=== PATIENT | female | born 1945 | race Caucasian/White ===

== ENCOUNTER 2017-12-05 14:59 | Outpatient (CLI) | payer MEDICARE, BC | END 2017-12-05 15:00 | disposition home or self-care (01) | LOC: BICMAMMO 14:59 | PROVIDERS: ATTEND Specialist | DX: Z08 Encounter for follow-up examination after completed treatment for malignant neoplasm (principal); Z85.3 Personal history of malignant neoplasm of breast | CPT/HCPCS: 77066; G0279 ==

== ENCOUNTER 2018-01-14 07:21 | Inpatient (IN) | payer MEDICARE, BC ==
[2018-01-14 07:57] LABS: Bilirubin Negative (Negative); Blood, Urine Small (Negative); Clarity CLEAR (Clear); Glucose, Urine (Dipstick) Negative (Negative); Leukocyte Small (Negative); Nitrite Negative (Negative); Protein, Urine (Dipstick) Negative (Neg-Trace); Specific Gravity, Urine 1.017 (1.002-1.036); Urobilinogen 0.2 mg/dL (0.2-1.0); pH, Urine 6.5 (5.0-9.0)
[2018-01-14 07:58] LABS: Bacteria/HPF None Seen HPF (None Seen); Hyaline Casts/LPF 0-3 HYALINE CAST LPF (0-3 Hyaline); Pathc Cast-AUWi Flag 0.29 (0-2.49); Squamous Epithelial 0-3 HPF (0-3)
[2018-01-14 08:16] LABS: Hemoglobin 12.9 g/dL (12.0-16.0); Mean Corpuscular HGB CONC 32.8 g/dL (32.0-36.0); Mean Corpuscular Hemoglobin 33.4 pg (27.0-31.0); Mean Platelet Volume 6.8 fL (7.4-10.4); Platelet Count 176 thou/uL (130-400); RBC Distribution Width 11.6 % (11.5-14.5); Red Blood Cell (RBC) Count 3.85 mill/uL (4.20-5.40); White Blood Cell (WBC) Count 19.9 thou/uL (4.8-10.8)
[2018-01-14] MEDS ORDERED: Ondansetron HCl/PF 4 MG/2 ML Vial ONE (08:28)
[2018-01-14 08:39] LABS: ALT (SGPT) 16 U/L (8-55); AST (SGOT) 24 U/L (5-34); Albumin 4.1 g/dL (3.4-4.8); Alkaline Phosphatase 74 U/L (40-150); Anion Gap 15 mmol/L (10-20); BUN (Urea Nitrogen) 19 mg/dL (9.8-20.1); Bilirubin, Total 0.7 mg/dL (0.2-1.2); CK (CPK) 250 U/L (29-168); Calc. Creatinine Clearance 0 mL/min (70-130); Calcium 9.2 mg/dL (7.8-10.44); Carbon Dioxide 23 mmol/L (23-31); Chloride 99 mmol/L (98-107); Estimated GFR-MDRD 63; Globulin 2.6 g/dL (2.4-3.5); Glucose 110 mg/dL (83-110); Lipase 53 U/L (8-78); Potassium 4.1 mmol/L (3.5-5.1); Protein, Total 6.7 g/dL (6.0-8.3); Sodium 133 mmol/L (136-145)
[2018-01-14 08:46] LABS: Band 10 % (5-11); CKMB 5.7 ng/mL (0-6.6); Lymphocytes 44 % (21-51); Monocytes 1 % (0-10); Neutrophil 45 % (42-75); Troponin I Less than 0.010 ng/mL (< 0.028)
[2018-01-14 08:47] LABS: MDiff Complete? YES; PLT Morphology Comment Appears Adequate; Polychromasia SLIGHT = 2-3 cells (100X) (0-2/hpf)
--- NOTE | 2018-01-14 09:05 | RAD ---
AP VIEW CHEST: Date: 01/14/18 INDICATION: History of back pain and chest pain since 0500 hours this morning. COMPARISON: Prior single view chest radiograph dated 01/26/14. FINDINGS: No confluent air space opacity or pleural effusion is evident. There is stable focal eventration of t he right central hemidiaphragm. No pleural effusion or pneumothorax is present. There is added densit y overlying the anterolateral right 6th rib, which is likely related to a confluence of shadows from the right posterolateral 9th rib and pulmonary vasculature. IMPRESSION: No acute cardiopulmonary abnormality. POS: [facility]
[2018-01-14] MEDS ORDERED: ISOVUE-370 76%-LOCM 1 ML ONE (09:35)
[2018-01-14] MEDS ORDERED: Piperacillin/Tazobactam 3.375 GM VIAL ONE (09:39)
--- NOTE | 2018-01-14 10:01 | CT ---
CT PULMONARY ANGIOGRAM WITH IV CONTRAST AND 3D POSTPROCESSING: Date: 01/14/18 HISTORY: Dyspnea, back pain, and chest pain. FINDINGS: There is good contrast opacification of the pulmonary arterial vasculature without filling defects to suggest pulmonary embolism. The thoracic aorta is well opacified without aneurysm or dissection. The re is patchy consolidation in the left upper lobe. There is a peripheral 1.0 cm nodule in the right u pper lobe with adjacent mild infiltrate medially. No pleural or pericardial effusions are seen. There are degenerative changes in the spine. A small hiatal hernia is present. There are changes of cholec ystectomy. IMPRESSION: 1. No CT evidence of pulmonary embolism. 2. Left upper lobe infiltrate suspicious for pneumonia. 3. 1.0 cm right upper lobe nodule. RECOMMENDATION: Recommend PET scanning 3-4 weeks after a course of antibiotics. POS: [facility]
[2018-01-14] MEDS ORDERED: Ketorolac Tromethamine 30 MG/ML VIAL ONE (10:34)
[2018-01-14] MEDS ORDERED: Ondansetron ODT 4 MG TAB SL PRN (11:23)
[2018-01-14] MEDS ORDERED: Ondansetron HCl/PF 4 MG/2 ML Vial IVP PRN (11:23)
[2018-01-14] MEDS ORDERED: Acetaminophen 325 MG TAB PO PRN (11:23)
[2018-01-14] MEDS ORDERED: Guaifenesin DM 100-10/5 ML UDCUP PO PRN (12:14)
[2018-01-14] MEDS ORDERED: Senokot 8.6 MG TAB PO PRN (12:14)
[2018-01-14 12:33] LABS: Lactic Acid 3.4 mmol/L (0.5-2.2)
[2018-01-14 13:08] LABS: Legionella Urinary Ag Negative (Negative); Strep pneumo Urine Ag NEGATIVE (NEGATIVE)
[2018-01-14] MEDS: Sodium Chloride 0.9% 1,000 ML IV SCH (14:09)
[2018-01-14] MEDS: Acetaminophen 325 MG TAB PO PRN ×2 (14:15→20:53)
[2018-01-14 14:28] VITALS: BMI 27.6
--- NOTE | 2018-01-14 15:09 | HP ---
REASON FOR ADMISSION: Chest pain, pneumonia. HISTORY OF PRESENTING ILLNESS: The patient gives history of waking up around 5: 30 in the morning with retrosternal chest pain radiating to the back. She also had dry heaving and shaking. No vomiting as such. No complaints of palpitations, PND or orthopnea. No cough or fever. The chest pain is 10/10 in intensity and radiates to the back. So far, Toradol has eased the pain to a level of 3/10 from 10/10 in intensity to start with. The patient has had a CT angio chest done in the ER which has not revealed any dissection. There was no evidence of PE, but left upper lobe infiltrate was seen. PAST MEDICAL AND SURGICAL HISTORY: History of right breast cancer with prior chemo and radiation therapy, history of prior E. coli bacteremia, chronic lymphatic leukemia on close monitoring with no active therapy at present, hypertension, dyslipidemia, history of SVT on chronic verapamil therapy for the same, appendectomy, cholecystectomy, hysterectomy, right breast lumpectomy with biopsies, [facility]. CURRENT MEDICATIONS: Patient is on aspirin 81 mg p.o. daily, levothyroxine 75 mcg p.o. daily, omeprazole 20 mg daily, triamterene with hydrochlorothiazide 37.5/25 mg half a tablet daily, glucosamine 500 mg daily, lovastatin 20 mg daily , anastrozole 1 mg daily, verapamil 240 mg extended release at bedtime. ALLERGIES: No known drug allergies. PERSONAL HISTORY: Does not abuse alcohol or drugs. No history of smoking. FAMILY HISTORY: Father has had history of coronary artery disease. Mother of congestive heart failure and had diabetes as well. CODE STATUS: FULL. REVIEW OF SYSTEMS: The following complete review of systems was negative, unless otherwise mentioned in the HPI or below: Constitutional: Weight loss or gain, ability to conduct usual activities. Skin: Rash, itching. Eyes: Double vision, pain. ENT/Mouth: Nose bleeding, neck stiffness, pain, tenderness. Cardiovascular: Palpitations, dyspnea on exertion, orthopnea. Respiratory: Shortness of breath, wheezing, cough, hemoptysis, fever or night sweats. Gastrointestinal: Poor appetite, abdominal pain, heartburn, nausea, vomiting, constipation, or diarrhea. Genitourinary: Urgency, frequency, dysuria, nocturia. Musculoskeletal: Pain, swelling. Neurologic/Psychiatric: Anxiety, depression. Allergy/Immunologic: Skin rash, bleeding tendency. PHYSICAL EXAMINATION: GENERAL: The patient is a 72-year-old female who is currently in mild to moderate distress from chest pain. VITAL SIGNS: Blood pressure 120/84, pulse 100 per minute, respiratory rate 18 per minute, temperature 98.4 degrees Fahrenheit, saturating 97% on room air. NECK: Supple, no elevated JVD. EYES: Extraocular muscles intact. Pupils reacting to light. ORAL CAVITY: Mucous membranes are moist. No exudates or congestion. CARDIOVASCULAR SYSTEM: S1, S2 heard. Regular rhythm. RESPIRATORY SYSTEM: Air entry 1+ bilaterally. No rales or rhonchi. ABDOMEN: Soft, bowel sounds heard. No tenderness, rigidity or guarding. EXTREMITIES: No peripheral edema or calf tenderness. VASCULAR SYSTEM: Peripheral pulses 1+ bilateral, no ischemic ulcerations or gangrene. CENTRAL NERVOUS SYSTEM: No gross focal deficits noted. Patient is alert, awake , oriented well. PSYCHIATRIC SYSTEM: The patient's mood is euthymic. No hallucinations or delusions. LABORATORY DATA AND IMAGING DATA: White count of 19, hemoglobin and hematocrit 12 and 39, platelet count is 176 with 45% neutrophils, 44% lymphocytes, 10% bands. D-dimer was 1.1. Sodium 133, serum bicarbonate 23, BUN 19, creatinine 0.8 and glucose 110. Lactic acid was 3.8. Liver enzymes within normal limits. CK levels were 250, albumin 4.1. First set of cardiac enzymes are negative. BNP is 39. TSH 1.7. Urinalysis shows mild leukocyte esterase with 11-20 WBCs, but no bacteria. Urine for Legionella pneumophila antigen is negative. Urine for Strep pneumo antigen is negative. CT angio chest done shows no evidence of PE. There is left upper lobe infiltrate suspicious for pneumonia, 1 cm right upper lobe nodule is seen as well. EKG done shows normal sinus rhythm at 94 beats per minute. CLINICAL IMPRESSION AND PLAN: The patient will be admitted to telemetry for retrosternal chest pain radiating to the back of unclear etiology. She has a prior history of esophageal stricture and has had dilatations done in the past, the last one was [address] angio chest done shows no evidence of dissection or PE. The patient is asymptomatic as to cough or expectoration, but has fever and in view of CAT scan findings, we will treat her for pneumonia with Levaquin. The patient has known history of CLL and is not on any medications and is closely monitored by her oncologist. We will continue her aspirin, Synthroid, verapamil and Zocor as before. We will obtain 2 more sets of troponin. In view of patient's ongoing continued chest pain, we will obtain Cardiology consultation with Dr. Watson and Pulmonary consultation with Dr. Murray as well. We will continue to closely monitor her for any hemodynamic compromise. Will consult her GI specialist as its unclear if she has any food stuck in her esophagus with severe pain and prior h/o esophageal stricture. [facility]
[2018-01-14] MEDS: Albuterol Sulfate 1.25 MG/3 ML NEB NEB SCH ×2 (15:29→23:47)
[2018-01-14] MEDS ORDERED: Anastrozole 1 MG TAB PO SCH (19:45)
[2018-01-14] MEDS: Simvastatin 5 MG TAB PO SCH (20:48)
[2018-01-14] MEDS: Ferrous Sulfate 325 MG TAB PO SCH (20:49)
[2018-01-14] MEDS: Docusate 100 MG CAP PO SCH (20:49)
--- NOTE | 2018-01-15 00:02 | CON ---
DATE OF CONSULTATION: 01/14/2018 CONSULTING PHYSICIAN: Dr. Orta. REASON FOR CONSULTATION: Pneumonia. The following encompassed 30 minutes time, of that time, greater than 50% was spent with the patient and/or on the patient's hospital unit. HISTORY OF PRESENT ILLNESS: Ms. Mata is a 72-year-old female, who presented to the emergency r oom earlier today with fairly acute onset of left shoulder pain started about 5:30 this morning. She had not had any type of proceeding cough or congestion. She underwent a chest x-ray, which was nega tive, but subsequently underwent a CT pulmonary angiogram to rule out pulmonary embolism. While she did not have pulmonary embolism, the CT demonstrated a left upper lobe infiltrate which is not appare nt on previous x-rays. I have no previous CT scan to compare this to. The patient has a history of esophageal stricture, but does not note any recent history of choking, g asping or difficulty with her swallowing. She does have a history of chronic lymphocytic leukemia, b ut is not receiving any treatment for that because her blood counts have been under control. PAST MEDICAL HISTORY: 1. Breast cancer treated with lumpectomy and radiation therapy back in 2013. 2. Chronic lymphocytic leukemia. 3. Tachycardia. 4. Microhematuria. 5. Scoliosis. 6. Hyperlipidemia. PAST SURGICAL HISTORY: 1. Appendectomy. 2. Cholecystectomy. 3. Hysterectomy. 4. Breast biopsy. 5. Breast lumpectomy. ALLERGIES: None. MEDICATIONS: Prior to admission, verapamil 120 mg in the morning, 240 mg in the evening; Maxzide 0.5 mg daily; potassium chloride 40 mEq daily; omeprazole 20 mg daily, niacin 2 tablets at bedtime; lova statin 20 mg daily; levothyroxine 75 mcg daily; ibuprofen 200 mg every 6 hours as needed; iron sulfat e daily; calcium citrate 1 tablet b.i.d.; aspirin 81 mg daily. SOCIAL HISTORY: Nonsmoker, does not consume alcohol, does not use illicit drugs. FAMILY MEDICAL HISTORY: Remarkable for heart disease, congestive heart failure, and type 2 diabetes mellitus. REVIEW OF SYSTEMS: Twelve-point review of systems is otherwise negative. PHYSICAL EXAMINATION: VITAL SIGNS: Temperature 98.9, pulse 97, respirations 16, O2 sat 96% on room air, blood pressure 121 /59. GENERAL: The patient appears acutely ill, but is not having difficulty, talking to me. HEENT: Pupils react. Sclerae icteric. Normal tongue. Normal oropharynx. NECK: Without adenopathy or JVD. LUNGS: A few crackles in the left upper lobe, best heard posteriorly. Right side is clear. CARDIAC: S1, S2 regular with 2/6 systolic murmur at the left sternal border. ABDOMEN: Soft, nontender, nondistended. EXTREMITIES: No clubbing, cyanosis, or edema. LABORATORY DATA: Sodium 133, potassium 4.1, chloride 99, CO2 of 23, BUN 19, creatinine 0.8, glucose 110. Lactate level was 3.4, after initially being 3.8 on admission. CPK is 215, CK-MB 5.7. ]BNP 39 .8. TSH 1.77. D-dimer 1.13. White blood cell count 19.9, hematocrit 39, platelet count 176 with 45 % neutrophils, 10% bands, 44% lymphocytes. CT was reviewed, agree with findings of radiology report, also noted there was a 1 cm right upper lobe nodule that . ASSESSMENT: 1. Likely left upper lobe pneumonia which is acute. Cause of organisms are not known, but pneumococ brooke pneumonia would be leading suspect. 2. Mild renal dysfunction with some prerenal azotemia. 3. History of chronic medical problems including chronic lymphocytic leukemia, hypothyroidism, and e sophageal stricture. RECOMMENDATIONS: 1. Agree with treatment with Levaquin. Alternatively cephalosporin and Zithromax could be used. 2. Follow culture results. 3. IV hydration. 4. Treatment of pain with Tylenol, nonsteroidals, or narcotic medication. Thank you for the referral. I will be happy to follow with you.
[2018-01-15] MEDS: Sodium Chloride 0.9% 1,000 ML IV SCH (01:18)
--- NOTE | 2018-01-15 01:32 | CON ---
DATE OF CONSULTATION: 01/14/2018 DATE OF ADMISSION: 01/14/2018 INDICATION FOR CONSULTATION: A 72-year-old female with chest pain. HISTORY OF PRESENT ILLNESS: This is a very unfortunate 72-year-old female who has been seen by Dr. Destini raza in the past. She initially visited with her and evaluate her in 1995. She follows up with h im on routine office visits. She says she last saw him less than 6 months ago. She does have a hist ory of SVT. She has not had any other cardiac history that we are aware of. No history of coronary artery disease in the past. She presented after waking up this morning around 5:00 complaining of se michael left infrascapular back pain, which radiated to the chest area. It became worse with inspiratio n, worse with movement. She was seen in the emergency room and was noted to have normal cardiac enzy mes. Her EKG is unremarkable for any evidence of significant ischemia. She continues to have the ch est discomfort after being given Tylenol and this does not appear to be cardiac in nature at this surya e. The pain she says radiates from the back area and actually radiated to the front and then across to the right shoulder area. She had a CT angiogram performed, which showed no evidence of pulmonary emboli. She did have chest x-rays and CT scan which did show a left upper lobe infiltrate which was thought to be possible pneumonia. She also has a right upper lobe nodule, which is perhaps a new fin ding. She does have a history of breast cancer. At this time, she is still in some discomfort, but appears to be somewhat more fatigued and overall has had improvement in the pain, which she really de scribes as being 10/10 is now about down to about a 3/10. Unfortunately, she does have a temperature of 102.4 and most likely has some degree of pneumonia, which may be causing some pleurisy. Her O2 s aturations have been anywhere between 96% on admission and then dropped down to 88%, respiratory rate still remains around 20. She has a sinus rhythm on the EKG without any evidence of any arrhythmias. PAST MEDICAL HISTORY: Significant for right breast cancer which was treated with chemotherapy and ra diation. She has had esophageal dilatation. She has gastroesophageal reflux disease. She has had h istory of supraventricular tachycardia. She has chronic lymphocytic leukemia. She has a history of scoliosis, hypercholesterolemia, hypertension. OPERATIONS: She has undergone hysterectomy, appendectomy, cholecystectomy, right breast biopsy, and lumpectomy. MEDICATIONS: Include Tylenol, Lovenox, Robitussin-DM, albuterol, Calan SR 120 mg in the morning and 240 mg in the evening. She is on Colace, Senokot, Zocor, Feosol, chewable aspirin, levofloxacin, and Synthroid. She was given Toradol, which also easily discomfort in the back and she has been given a dose of Zosyn as well as Zofran. ALLERGIES: None. SOCIAL HISTORY: She has family members are alive and well. She has no alcohol or tobacco abuse. FAMILY HISTORY: Positive for coronary artery disease. Her father had myocardial infarction. REVIEW OF SYSTEMS: A 12-point review of systems unremarkable except noted in the history of present illness except she has had a recent and occasional cough, but no significant coughing that would acco unt for her new onset of chest discomfort and back pain. PHYSICAL EXAMINATION: GENERAL: Reveals a very pleasant, well-developed, well-nourished female who is in no acute distress. She is oriented. She does appear to be fatigued. VITAL SIGNS: Temperature is 102.4, heart rate 88 and regular, respiratory rate is 20, O2 saturations around 88% at this time, but most likely she is not taking deep breaths. Most likely this will impr ove with some deep inspirations. Blood pressure is 115/55. HEENT: Shows the head to be normocephalic and atraumatic. Carotid pulses are present. There were n o bruits. There is no JVD. The thyroid did not appear enlarged. CHEST: Appear to be clear to auscultation, but she did not take deep inspirations due to the pain in the back. CARDIOVASCULAR: Exam reveals a regular rate and rhythm. She has a normal S1, S2. There is no S3, S 4. There were no significant murmurs, heaves, thrills, bruits, or rubs. ABDOMEN: Soft and nontender. Positive bowel sounds are present. EXTREMITIES: Showed no clubbing, cyanosis, or edema. Pedal pulses are present. NEUROLOGIC: She appears to be intact. LABORATORY DATA: Shows a WBC of 19.9. The patient usually states her WBC runs around 10 or 11, hemo globin 12.9, platelet count 176,000. Her potassium is 4.1, creatinine is 0.88, blood sugar 110. Her CK was elevated at 250. Troponin I is negative. Her BNP was only 39. EKG is unremarkable and as n oted above. The findings from the CT angiogram were noted. IMPRESSION: 1. Back pain which does not appear to be cardiac in nature, this appears to be some musculoskeletal discomfort, it is possibly could be pleurisy or some other etiology, but does not appear to be cardia c. Especially with no significant EKG changes with chest pain, 10/10 and cardiac enzymes are negativ e. Once she recovers from her acute process of the temperature and possible pneumonia and possibly a stress test would be in order. 2. History of supraventricular tachycardia, she remained stable. She is in sinus rhythm. We will c ontinue the verapamil as per Dr. Watson's previous directions. 3. History of breast cancer. There is a new finding of a nodule in the right upper lung, which may be somewhat suspicious, and this will need to be followed in the future. 4. Hypertension, which is under good control at this time. 5. Hypercholesterolemia. She should continue on her medications. At this time, further care of the patient will be by Dr. Watson when he sees the patient tomorrow. At this time, from a cardiac sta ndpoint, she appears to be stable.
--- NOTE | 2018-01-15 01:35 | CON ---
DATE OF CONSULTATION: 01/14/2018 CHIEF COMPLAINT: Chest pain. HISTORY OF PRESENT ILLNESS: Ms. Mata is a 72-year-old woman who woke up early this morning wit h a sharp stabbing pain in her shoulder blade that radiated from her left chest and also pain with in spiration. The pain primarily occurs with bleeding. She felt constricted with her breathing on her left side and short of breath. She has had no nausea, vomiting, diarrhea, constipation, or blood in the stool. She has some chronic dysphagia to breads and meats, and if she eats too quickly, then the food will get hung up, but does go down on its own. She last had esophageal dilation by Dr. Eunice menon in 2016 for an esophageal stricture. These symptoms have been stable and she had no episode of dy sphagia last night prior to the onset of this pain. She has no pain with swallowing. She does have fever and elevated white blood cell count. She had a CT scan that showed an infiltrate in the left u pper lobe of the lung. PAST MEDICAL HISTORY: Esophageal stricture; breast cancer in the right, treated with chemotherapy an d radiation; lymphocytic leukemia; hypertension; dyslipidemia; SVT. PAST SURGICAL HISTORY: Appendectomy, cholecystectomy, hysterectomy, right breast lumpectomy, Medi[facility] t placement, EGD with dilation of her esophagus. FAMILY HISTORY: Negative for GI malignancy. SOCIAL HISTORY: No alcohol, tobacco, or drugs. ALLERGIES: No known drug allergies. MEDICATIONS: Prior to admission include aspirin, levothyroxine, omeprazole, triamterene and hydrochl orothiazide, glucosamine, lovastatin, anastrozole, verapamil. REVIEW OF SYSTEMS: Negative x10 systems reviewed except as stated in the history of present illness. PHYSICAL EXAMINATION: VITAL SIGNS: Temperature 102.4, pulse 103, blood pressure 115/55, oxygen saturation 88% on 2 liters. Pulses come down to 88. GENERAL: She is in no acute distress; however, she does appear uncomfortable. She is alert and orie nted x3. EYES: Have no scleral icterus. OROPHARYNX: Clear without lesions. NECK: No cervical or supraclavicular lymphadenopathy. LUNGS: Clear to auscultation bilaterally. HEART: Regular rate and rhythm without murmur. ABDOMEN: Soft, nontender, nondistended. Bowel sounds are present. EXTREMITIES: No lower extremity edema. LABORATORY DATA: White blood cell count 19.9, hemoglobin 12.9, platelets 176, creatinine 0.88, bilir ubin 0.7, AST 24, ALT 16, alkaline phosphatase 74, albumin 4.1. IMPRESSION: 1. Left upper lobe pneumonia with fever, high white blood cell count, and hypoxemia. She has pleuri tic pain with inspiration that radiates through to her left shoulder blade. All her symptoms correla te to the findings on the infiltrate on the CT scan. 2. History of chronic mild dysphagia associated with an esophageal stricture. There is no change in these symptoms recently. Her pain with inspiration does not appear to be related to this. She has no odynophagia. RECOMMENDATIONS: 1. Treatment of the pneumonia per the primary service. 2. Continue proton pump inhibitor. 3. Follow up with Dr. Dawson in the future after resolution of her pneumonia and followup endoscopy ca n be performed to again dilate her esophageal stricture. 4. I will sign off. Please call if GI can be of assistance.
[2018-01-15 04:50] LABS: Anion Gap 13 mmol/L (10-20); BUN (Urea Nitrogen) 21 mg/dL (9.8-20.1); Calc. Creatinine Clearance 72 mL/min (70-130); Calcium 8.2 mg/dL (7.8-10.44); Carbon Dioxide 21 mmol/L (23-31); Chloride 104 mmol/L (98-107); Estimated GFR-MDRD 63; Glucose 108 mg/dL (83-110); Potassium 3.8 mmol/L (3.5-5.1); Sodium 134 mmol/L (136-145)
[2018-01-15 05:07] LABS: Band 20 % (5-11); Hemoglobin 10.8 g/dL (12.0-16.0); Lymphocytes 18 % (21-51); MDiff Complete? YES; Mean Corpuscular HGB CONC 32.9 g/dL (32.0-36.0); Mean Corpuscular Hemoglobin 33.6 pg (27.0-31.0); Mean Platelet Volume 7.5 fL (7.4-10.4); Monocytes 3 % (0-10); Neutrophil 56 % (42-75); Platelet Count 143 thou/uL (130-400); RBC Distribution Width 11.7 % (11.5-14.5); Reactive Lymphocytes 3 % (0-10); Red Blood Cell (RBC) Count 3.21 mill/uL (4.20-5.40); White Blood Cell (WBC) Count 22.8 thou/uL (4.8-10.8)
[2018-01-15] MEDS: Levothyroxine Sodium 75 MCG TAB PO SCH (05:17)
[2018-01-15] MEDS: Acetaminophen 325 MG TAB PO PRN ×4 (05:18→22:05)
[2018-01-15] MEDS: Albuterol Sulfate 1.25 MG/3 ML NEB NEB SCH ×3 (06:41→23:06)
[2018-01-15] MEDS: Enoxaparin Sodium 40 MG/0.4 ML SYRINGE SC SCH (08:34)
[2018-01-15] MEDS: Anastrozole 1 MG TAB PO SCH (08:34)
[2018-01-15] MEDS: Verapamil SR 120 MG TAB PO SCH (08:34)
[2018-01-15] MEDS: Docusate 100 MG CAP PO SCH ×2 (08:34→22:06)
--- NOTE | 2018-01-15 09:28 | PRG ---
DATE OF SERVICE: 01/15/2018 SUBJECTIVE: The patient feels better. She is sitting up and eating breakfast. OBJECTIVE: VITAL SIGNS: On exam, temperature is 99 with a T-max of 102.0, pulse 93, respirations 18, O2 sat 93% on room air, blood pressure 118/58. HEENT: Unremarkable. NECK: No JVD. CHEST: A few crackles in left upper lobe. CARDIAC: S1 and S2, regular. ABDOMEN: Soft. EXTREMITIES: No edema. LABORATORY DATA: White blood cell count 22.8, hematocrit 32.7, platelet count 143 with 56% neutrophi ls and 20% bands. Sodium 134, potassium 3.8, chloride 104, CO2 of 21, BUN 21, creatinine 0.8, glucos e 108. ASSESSMENT: 1. Left upper lobe pneumonia. 2. Immunocompromised secondary to chronic lymphocytic leukemia. RECOMMENDATION: Continue the Levaquin, as she seems to be responding to that. Followup culture resu lts.
--- NOTE | 2018-01-15 10:49 | PDOC.PN ---
- Subjective Encounter Start Date: 01/15/18 Encounter Start Time: 09:15 Subjective: feels better, is amb with PT -: no sob or palp -: chest pain has eased up now but still has some twitching - Objective Resuscitation Status: Resuscitation Status FULL:Full Resuscitation MAR Reviewed: Yes Vital Signs & Weight: Vital Signs (12 hours) Temp Pulse Resp BP Pulse Ox 01/15/18 08:00 99 F 93 18 118/58 L 93 L 01/15/18 06:41 93 16 95 01/15/18 04:00 99.8 F H 90 18 100/61 94 L 01/15/18 00:00 100 F H 92 18 102/53 L 92 L 01/14/18 23:47 94 16 93 L Weight Weight 176 lb 8 oz I&O: 01/14/18 01/15/18 01/16/18 06:59 06:59 06:59 Intake Total 800 Balance 800 Result Diagrams: 01/15/18 04:14 01/15/18 04:13 Phys Exam - Physical Examination HEENT: PERRLA, moist MMs Neck: no JVD, supple Respiratory: no wheezing, no rales Cardiovascular: RRR, no significant murmur Gastrointestinal: soft, non-tender, positive bowel sounds Musculoskeletal: no edema, pulses present Neurological: non-focal, moves all 4 limbs Psychiatric: normal affect, A&O x 3 Dx/Plan (1) Sepsis Code(s): A41.9 - SEPSIS, UNSPECIFIED ORGANISM Status: Acute Qualifiers: Sepsis type: sepsis due to unspecified organism Qualified Code(s): A41.9 - Sepsis, unspecified organism (2) Bacteremia Code(s): R78.81 - BACTEREMIA Status: Acute Comment: pseudomonas 1/2 sets (3) PNA (pneumonia) Code(s): J18.9 - PNEUMONIA, UNSPECIFIED ORGANISM Status: Acute Qualifiers: Pneumonia type: due to unspecified organism Laterality: left Lung location: upper lobe of lung Qualified Code(s): J18.1 - Lobar pneumonia, unspecified organism (4) CLL (chronic lymphocytic leukemia) Code(s): C91.90 - LYMPHOID LEUKEMIA, UNSPECIFIED NOT HAVING ACHIEVED REMISSION Status: Chronic (5) H/O malignant neoplasm of breast Code(s): Z85.3 - PERSONAL HISTORY OF MALIGNANT NEOPLASM OF BREAST Status: Chronic Comment: on chemotherapy (6) HTN (hypertension) Code(s): I10 - ESSENTIAL (PRIMARY) HYPERTENSION Status: Chronic Qualifiers: Hypertension type: essential hypertension Qualified Code(s): I10 - Essential (primary) hypertension (7) Physical deconditioning Code(s): R53.81 - OTHER MALAISE Status: Acute (8) Dyslipidemia Code(s): E78.5 - HYPERLIPIDEMIA, UNSPECIFIED Status: Chronic - Plan add cefepime to levaquin until cultures are back -: PT to mobilize as tolerated, may walk with rw in room -: nebs, asp, zocor, verapamil and synthroid -: had tmax of 100 last 24hrs -: consult . Elevated wbc sec to CLL * . Review of Systems - Medications/Allergies Allergies/Adverse Reactions: Allergies Allergy/AdvReac Type Severity Reaction Status Date / Time No Known Allergies Allergy Verified 01/08/14 17:18 Medications: Current Medications Acetaminophen (Tylenol) 650 mg PO Q4H PRN PRN Reason: Headache/Fever or Pain Last Admin: 01/15/18 10:29 Dose: 650 mg Albuterol Sulfate (Albuterol Sulfate) 1.25 mg NEB [id number] [facility] Last Admin: 01/15/18 06:41 Dose: 1.25 mg Anastrozole (Arimidex) 1 mg PO DAILY [facility] Last Admin: 01/15/18 08:34 Dose: 1 mg Aspirin (Aspirin Chewable) 81 mg PO HS [facility] Last Admin: 01/14/18 20:49 Dose: 81 mg Docusate Sodium (Colace) 100 mg PO BID [facility] Last Admin: 01/15/18 08:34 Dose: 100 mg Enoxaparin Sodium (Lovenox) 40 mg SC 0900 [facility] Last Admin: 01/15/18 08:34 Dose: 40 mg Ferrous Sulfate (Feosol) 325 mg PO HS [facility] Last Admin: 01/14/18 20:49 Dose: 325 mg Guaifenesin/Dextromethorphan (Robitussin Dm) 15 ml PO Q4H PRN PRN Reason: Cough Levofloxacin 500 mg/ Device 100 mls @ 100 mls/hr IVPB Q24HR@1300 [facility] Last Admin: 01/14/18 14:00 Dose: 100 mls Cefepime HCl 1 gm/ Sodium (Chloride) 100 mls @ 200 mls/hr IVPB Q12HR [facility] Levothyroxine Sodium (Synthroid) 75 mcg PO 0600 [facility] Last Admin: 01/15/18 05:17 Dose: 75 mcg Senna (Senokot) 2 tab PO HSPRN PRN PRN Reason: Constipation Simvastatin (Zocor) 10 mg PO HS [facility] Last Admin: 01/14/18 20:48 Dose: 10 mg Verapamil HCl (Calan Sr) 120 mg PO QAM [facility] Last Admin: 01/15/18 08:34 Dose: 120 mg Verapamil HCl (Calan Sr) 240 mg PO HS [facility]
[2018-01-15] MEDS: Cefepime 1 GM in Sodium Chloride 0.9% 100 ML IVPB SCH (22:04)
[2018-01-15] MEDS: Simvastatin 5 MG TAB PO SCH (22:05)
[2018-01-15] MEDS: Ferrous Sulfate 325 MG TAB PO SCH (22:05)
--- NOTE | 2018-01-16 00:38 | CON ---
DATE OF CONSULTATION: 01/15/2018 REASON FOR CONSULTATION: Pseudomonas bacteremia. HISTORY OF PRESENT ILLNESS: Ms. Mata is a 72-year-old who has a history of breast cancer treat ed with chemoradiation therapy and in remission, CLL been monitored without any active therapy at the moment, who developed what she describes as pain in the mid thoracic spine area radiating towards th e front, associated with chills, some nausea. The pain was very intense. She had even the CT angio to rule out dissection, which was negative. There is a left upper lobe infiltrate seen. Initial fin dings included pulse 100, blood pressure 120/84, respiratory rate 18, and temperature 98.4. She had symmetric air entry, but no crackles. Abdomen is soft. Initial white cell count 19,000 with a left shift and creatinine 0.8, lactic acid 3.8, CK 250. Urinalysis with mild leukocyte esterase, 11-20 wb c's. Urine antigen for legionella and Streptococcus pneumoniae negative. CT angio showed no dissect ion or pulmonary embolism. One set of blood cultures out of 2 with Pseudomonas aeruginosa. Urine cu lture with gram negative denys yet to be fully identified and susceptibility tested. The patient had a respiratory virus panel, PCR, which is nothing detected. Currently, she is still having pain in the mid back area, a little bit numb from the analgesia given, it was tender to palpation and along the paravertebral area, this was a longer more or less T7-T8. She has no headaches, no visual symptoms, no vomiting anymore. No genitourinary symptoms. No joint symptoms. PAST MEDICAL HISTORY: Includes breast cancer in remission after chemoradiation therapy; E. coli bact eremia, previously treated; CLL been monitored without active therapy; hypertension; SVT on verapamil . PAST SURGICAL HISTORY: Appendectomy; cholecystectomy; hysterectomy; lumpectomy; MediPort placement i n the past, I think the MediPort has been removed. ALLERGIES: None. CURRENT MEDICATION LIST: Include Tylenol, albuterol, Arimidex, cefepime, Colace, Robitussin, levoflo xacin, Synthroid, Senokot, verapamil, Zocor. PHYSICAL EXAMINATION: VITAL SIGNS: T-max 102.4, currently 100; blood pressure 120/58; pulse 91; respirations 18; O2 sat 95 %. SKIN: No areas of skin breakdown. The patient has a peripheral IV access. No Kemp catheter. She is voiding spontaneously. No lymphadenopathy. HEENT: Ocular movements are conjugate. Oral cavity is unremarkable. NECK: Supple. LUNGS: Symmetric air entry. HEART: S1, S2, regular rate. There is mild tenderness around T7-T8 area. ABDOMEN: Soft, not distended or tender. No ascites. No bladder distention. EXTREMITIES: Moves extremities equally. Plantar responses are flexor. Pulses 1+ in dorsalis pedis. NEUROLOGIC: Cognitive function appears to be intact. LABORATORY DATA: White cell count is 19,000 up to 22,000, hemoglobin down to 10.8, MCV 102, platelet s 143 with 20% bands. Sodium 134, creatinine 0.88, AST 24, ALT 16, alkaline phosphatase 74. BNP 39, albumin 4.1, globulin 2.6. TSH 1.7. ASSESSMENT: 1. Breast cancer and chronic lymphocytic leukemia. The breast cancer in remission, chronic lymphocy tic leukemia is quiescent, although not on treatment at this time. 2. Back pain what appears to be radiculopathic symptoms with pain radiating towards the anterior par t of the chest with negative CT angio. 3. Pseudomonas aeruginosa bacteremia which appears to be transient. DISCUSSION: Differential diagnosis includes thoracic spine diskitis secondary to Pseudomonas aerugin roshan. Endocarditis would be less likely. Pneumonia would be another possibility could be related to the immunodeficiency associated with her CLL. We will check a thoracic spine MRI. Continue current antibiotic regimen. If the thoracic spine MRI is negative, I believe that a respiratory tract would be the more likely culprit here. Intra-abdominal inflammatory process does not appear likely. I do not think she has a port any longer to make a suspect of any vascular access at this point in time.
[2018-01-16] MEDS: Levothyroxine Sodium 75 MCG TAB PO SCH (05:45)
[2018-01-16] MEDS: Acetaminophen 325 MG TAB PO PRN ×3 (05:45→20:36)
[2018-01-16] MEDS: Albuterol Sulfate 1.25 MG/3 ML NEB NEB SCH ×3 (06:18→22:27)
--- NOTE | 2018-01-16 08:16 | PRG ---
DATE OF SERVICE: 01/16/2018 She had some hemoptysis this morning. Otherwise, she feels better. She is having less left shoulder pain and less shortness of breath. PHYSICAL EXAMINATION: VITAL SIGNS: On exam her temperature is 98.4 with a T-max of 100.3, pulse 90, respirations 20, O2 sa t 92%, blood pressure 126/59, 24-hour intake 1280, output not quantitated. HEENT: Pupils react. Sclerae icteric. Oropharynx clear. NECK: Without adenopathy or JVD. LUNGS: She has a few inspiratory crackles left upper lobe, right side clear. CARDIAC: S1 and S2 regular. ABDOMEN: Soft, nontender. EXTREMITIES: No edema. LABORATORY DATA: No laboratory testing was done today. The blood cultures are growing out Pseudomon as. She also has a gram negative denys in the urine culture. A respiratory virus panel did not detect any viruses. ASSESSMENT: 1. Left upper lobe pneumonia, perhaps due to Pseudomonas. 2. Chronic lymphocytic leukemia. RECOMMENDATIONS: She is on Levaquin and cefepime. She seems to be doing well. The hemoptysis is pr obably secondary to the pneumonia and at this point would only require antibiotic therapy. When sens itivities are back she can be switched to oral antibiotics. I think she can be transferred to the va dical unit.
[2018-01-16] MEDS: Enoxaparin Sodium 40 MG/0.4 ML SYRINGE SC SCH (09:17)
[2018-01-16] MEDS: Cefepime 1 GM in Sodium Chloride 0.9% 100 ML IVPB SCH ×2 (09:17→21:14)
[2018-01-16] MEDS: Anastrozole 1 MG TAB PO SCH (09:18)
[2018-01-16] MEDS: Docusate 100 MG CAP PO SCH ×2 (09:18→20:39)
[2018-01-16] MEDS: Verapamil SR 120 MG TAB PO SCH (09:18)
--- NOTE | 2018-01-16 11:05 | PDOC.PN ---
- Subjective Encounter Start Date: 01/16/18 Encounter Start Time: 10:25 Subjective: no sob or chest pain -: feels better, has ambulated with PT -: had fever overnight but slept better - Objective Resuscitation Status: Resuscitation Status FULL:Full Resuscitation MAR Reviewed: Yes Vital Signs & Weight: Vital Signs (12 hours) Temp Pulse Resp BP Pulse Ox 01/16/18 07:42 98.4 F 90 20 126/59 L 92 L 01/16/18 06:18 95 16 95 01/16/18 04:00 100.3 F H 94 18 127/64 94 L 01/16/18 00:00 99.7 F H 95 20 118/56 L 92 L 01/15/18 23:06 92 16 90 L Weight Weight 176 lb 8 oz I&O: 01/15/18 01/16/18 01/17/18 06:59 06:59 06:59 Intake Total 1280 240 Balance 1280 240 Result Diagrams: 01/15/18 04:14 01/15/18 04:13 Phys Exam - Physical Examination HEENT: PERRLA, moist MMs Neck: no JVD, supple Respiratory: no wheezing, no rales Cardiovascular: RRR, no significant murmur Gastrointestinal: soft, non-tender, positive bowel sounds Musculoskeletal: no edema, pulses present Neurological: non-focal, moves all 4 limbs Psychiatric: normal affect, A&O x 3 Dx/Plan (1) Sepsis Code(s): A41.9 - SEPSIS, UNSPECIFIED ORGANISM Status: Acute Qualifiers: Sepsis type: sepsis due to unspecified organism Qualified Code(s): A41.9 - Sepsis, unspecified organism (2) Bacteremia Code(s): R78.81 - BACTEREMIA Status: Acute Comment: pseudomonas 1/2 sets (3) PNA (pneumonia) Code(s): J18.9 - PNEUMONIA, UNSPECIFIED ORGANISM Status: Acute Qualifiers: Pneumonia type: due to unspecified organism Laterality: left Lung location: upper lobe of lung Qualified Code(s): J18.1 - Lobar pneumonia, unspecified organism (4) CLL (chronic lymphocytic leukemia) Code(s): C91.90 - LYMPHOID LEUKEMIA, UNSPECIFIED NOT HAVING ACHIEVED REMISSION Status: Chronic (5) H/O malignant neoplasm of breast Code(s): Z85.3 - PERSONAL HISTORY OF MALIGNANT NEOPLASM OF BREAST Status: Chronic Comment: on chemotherapy (6) HTN (hypertension) Code(s): I10 - ESSENTIAL (PRIMARY) HYPERTENSION Status: Chronic Qualifiers: Hypertension type: essential hypertension Qualified Code(s): I10 - Essential (primary) hypertension (7) Physical deconditioning Code(s): R53.81 - OTHER MALAISE Status: Acute (8) Dyslipidemia Code(s): E78.5 - HYPERLIPIDEMIA, UNSPECIFIED Status: Chronic - Plan await blood cs results -: is going for MRI thoracic spine today -: is on cefepime and levaquin -: tmax of 100, on asp, verapamil, zocor and synthroid -: to continue ambulating with PT * . Review of Systems - Medications/Allergies Allergies/Adverse Reactions: Allergies Allergy/AdvReac Type Severity Reaction Status Date / Time No Known Allergies Allergy Verified 01/08/14 17:18 Medications: Current Medications Acetaminophen (Tylenol) 650 mg PO Q4H PRN PRN Reason: Headache/Fever or Pain Last Admin: 01/16/18 10:53 Dose: 650 mg Albuterol Sulfate (Albuterol Sulfate) 1.25 mg NEB [id number] [facility] Last Admin: 01/16/18 06:18 Dose: 1.25 mg Anastrozole (Arimidex) 1 mg PO DAILY [facility] Last Admin: 01/16/18 09:18 Dose: 1 mg Aspirin (Aspirin Chewable) 81 mg PO HS [facility] Last Admin: 01/15/18 22:05 Dose: 81 mg Docusate Sodium (Colace) 100 mg PO BID [facility] Last Admin: 01/16/18 09:18 Dose: Not Given Enoxaparin Sodium (Lovenox) 40 mg SC 0900 [facility] Last Admin: 01/16/18 09:17 Dose: 40 mg Ferrous Sulfate (Feosol) 325 mg PO HS [facility] Last Admin: 01/15/18 22:05 Dose: 325 mg Guaifenesin/Dextromethorphan (Robitussin Dm) 15 ml PO Q4H PRN PRN Reason: Cough Levofloxacin 500 mg/ Device 100 mls @ 100 mls/hr IVPB Q24HR@1300 [facility] Last Admin: 01/15/18 13:12 Dose: 100 mls Cefepime HCl 1 gm/ Sodium (Chloride) 100 mls @ 200 mls/hr IVPB Q12HR [facility] Last Admin: 01/16/18 09:17 Dose: 100 mls Levothyroxine Sodium (Synthroid) 75 mcg PO 0600 [facility] Last Admin: 01/16/18 05:45 Dose: 75 mcg Senna (Senokot) 2 tab PO HSPRN PRN PRN Reason: Constipation Simvastatin (Zocor) 10 mg PO [facility] Last Admin: 01/15/18 22:05 Dose: 10 mg Verapamil [facility] (Calan Sr) [facility] Last Admin: 01/16/18 09:18 Dose: 120 mg Verapamil HCl (Calan Sr) 240 mg PO [facility] Last Admin: 01/15/18 22:05 Dose: 240 mg
--- NOTE | 2018-01-16 14:35 | MRI ---
MRI OF THE THORACIC SPINE WITH AND WITHOUT CONTRAST: Date: 01/16/18 INDICATION: Mid back pain with bacteremia and radiculopathy. Patient is experiencing left-sided chest pain that r adiates into the back starting 2 days ago. COMPARISON: CTA of the thorax dated 01/14/18. TECHNIQUE: 20 mL of MultiHance was utilized for the examination. FINDINGS: There has been interval development of bilateral pleural effusions. There is air space consolidation of the left upper lobe as seen on the comparison CT examination, suspicious for pneumonia. No abnormal marrow signal intensity is seen involving the thoracic spine. There is a small bony heman gioma within T3. There is mild multilevel spondylosis of the thoracic spine. There is no appreciable central canal or neural foraminal narrowing. The spinal cord demonstrates a normal signal intensity and contour. There is small central disc protrusion at T5-T6 and T6-T7. There is a small right paracentral disc pr otrusion at T9-T10. There is a small left paracentral protrusion at T11-T12. No definite abnormal mar row signal enhancement is evident. No extra-axial collection is grossly evident within the spinal can al. IMPRESSION: Multilevel spondylosis of the thoracic spine. There is no evidence to suggest presence of diskitis or osteomyelitis. No definite epidural abscess is grossly evident. POS: [facility]
--- NOTE | 2018-01-16 17:32 | PRG ---
DATE OF SERVICE: 01/16/2018 HISTORY: Ms. Mata is feeling better. PHYSICAL EXAMINATION: VITAL SIGNS: T-max 99.7, and BP 130/85. LUNGS: With few crackles in the right side. HEART: S1, S2, regular rate. ABDOMEN: Soft, not distended. LABORATORY DATA: White cell count 22,000, hemoglobin 10.8. Chemistry with a sodium of 134, creatini ne 0.88. Urinalysis 11-20 wbc's. Microbiology with yet to be identified. A urine culture gram nega tive denys. The MRI did not show any inflammatory changes in the spine. ASSESSMENT AND DISCUSSION: Breast cancer, chronic lymphocytic leukemia in remission now, Pseudomonas aeruginosa bacteremia, still waiting on the identification of the urinary possible pathogen. If it is a Pseudomonas, then we will assume that the bacteremia originates from the urinary tract, may need to reimage the urinary tract at that time. The spine does not have any inflammatory process.
[2018-01-16] MEDS: Simvastatin 5 MG TAB PO SCH (20:36)
[2018-01-16] MEDS: Ferrous Sulfate 325 MG TAB PO SCH (20:36)
[2018-01-17] MEDS: Acetaminophen 325 MG TAB PO PRN ×3 (03:14→22:37)
[2018-01-17] MEDS: Levothyroxine Sodium 75 MCG TAB PO SCH (06:07)
[2018-01-17] MEDS: Albuterol Sulfate 1.25 MG/3 ML NEB NEB SCH ×3 (06:49→22:43)
--- NOTE | 2018-01-17 08:25 | PRG ---
DATE OF SERVICE: 01/17/2018 The patient feels better, had no acute complaints. PHYSICAL EXAMINATION: VITAL SIGNS: Temperature is 99.2 with a T-max of 100.7 yesterday, pulse 89, respirations 14, O2 sat 93%, blood pressure 146/67. HEENT: Unremarkable. NECK: No JVD. LUNGS: Fairly clear without wheezing or rhonchi. CARDIAC: S1 and S2 regular. ABDOMEN: Soft. EXTREMITIES: No edema. The sensitivities from the Pseudomonas showed that there was no resistance patterns. ASSESSMENT: 1. Pseudomonal pneumonia 2. Chronic lymphocytic leukemia. RECOMMENDATIONS: From my standpoint, she can be switched over to oral Levaquin and discharged. I wo uld probably treat this for about 14 days, but I would certainly defer any treatment recommendations to Dr. Murphy. We also probably need to determine whether or not she needs dual coverage. I have ask ed her to come to the office in 3-4 weeks for a repeat x-ray. I have no objections to her going home today if the other doctors agree.
[2018-01-17] MEDS: Cefepime 1 GM in Sodium Chloride 0.9% 100 ML IVPB SCH ×2 (08:46→21:15)
[2018-01-17] MEDS: Verapamil SR 120 MG TAB PO SCH (08:47)
[2018-01-17] MEDS: Docusate 100 MG CAP PO SCH ×2 (08:47→21:16)
[2018-01-17] MEDS: Anastrozole 1 MG TAB PO SCH (08:47)
--- NOTE | 2018-01-17 13:08 | PDOC.PN ---
- Subjective Encounter Start Date: 01/17/18 Encounter Start Time: 10:00 Subjective: feels better, no nausea or abd pain -: had blood on wipes yesterday after BM, none after that -: no stool sample yet, no sob or chest pain - Objective Resuscitation Status: Resuscitation Status FULL:Full Resuscitation MAR Reviewed: Yes Vital Signs & Weight: Vital Signs (12 hours) Temp Pulse Resp BP Pulse Ox 01/17/18 13:04 97 16 142/70 H 93 L 01/17/18 08:42 98.6 F 86 17 127/63 94 L 01/17/18 06:49 89 14 93 L 01/17/18 03:09 99.2 F 88 19 146/67 H 93 L Weight Weight 179 lb 14.4 oz I&O: 01/16/18 01/17/18 01/18/18 06:59 06:59 06:59 Intake Total 1280 1854.8 Output Total 450 Balance 1280 1404.8 Result Diagrams: 01/16/18 16:16 01/15/18 04:13 Phys Exam - Physical Examination HEENT: PERRLA, moist MMs Neck: no JVD, supple Respiratory: no wheezing, no rales Cardiovascular: RRR, no significant murmur Gastrointestinal: soft, non-tender, positive bowel sounds Musculoskeletal: no edema, pulses present Neurological: non-focal, moves all 4 limbs Psychiatric: normal affect, A&O x 3 Dx/Plan (1) Sepsis Code(s): A41.9 - SEPSIS, UNSPECIFIED ORGANISM Status: Acute Comment: sec to pseudomonas (2) Bacteremia Code(s): R78.81 - BACTEREMIA Status: Acute Comment: pseudomonas 1/2 sets (3) PNA (pneumonia) Code(s): J18.9 - PNEUMONIA, UNSPECIFIED ORGANISM Status: Acute Qualifiers: Pneumonia type: due to unspecified organism Laterality: left Lung location: upper lobe of lung Qualified Code(s): J18.1 - Lobar pneumonia, unspecified organism (4) CLL (chronic lymphocytic leukemia) Code(s): C91.90 - LYMPHOID LEUKEMIA, UNSPECIFIED NOT HAVING ACHIEVED REMISSION Status: Chronic (5) H/O malignant neoplasm of breast Code(s): Z85.3 - PERSONAL HISTORY OF MALIGNANT NEOPLASM OF BREAST Status: Chronic Comment: on chemotherapy (6) HTN (hypertension) Code(s): I10 - ESSENTIAL (PRIMARY) HYPERTENSION Status: Chronic Qualifiers: Hypertension type: essential hypertension Qualified Code(s): I10 - Essential (primary) hypertension (7) Physical deconditioning Code(s): R53.81 - OTHER MALAISE Status: Acute (8) Dyslipidemia Code(s): E78.5 - HYPERLIPIDEMIA, UNSPECIFIED Status: Chronic - Plan urine cs has <5000 cfu of gm-ve rods -: is going for CT abd -: is ambulating with PT -: responding well to cefepime and levaquin -: T.spine MRI did not reveal any inf source * . continue verapamil, asp, zocor and synthroid. Review of Systems - Medications/Allergies Allergies/Adverse Reactions: Allergies Allergy/AdvReac Type Severity Reaction Status Date / Time No Known Allergies Allergy Verified 01/08/14 17:18 Medications: Current Medications Acetaminophen (Tylenol) 650 mg PO Q4H PRN PRN Reason: Headache/Fever or Pain Last Admin: 01/17/18 03:14 Dose: 650 mg Albuterol Sulfate (Albuterol Sulfate) 1.25 mg NEB [id number] [facility] Last Admin: 01/17/18 06:49 Dose: 1.25 mg Anastrozole (Arimidex) 1 mg PO DAILY [facility] Last Admin: 01/17/18 08:47 Dose: 1 mg Aspirin (Aspirin Chewable) 81 mg PO HS [facility] Last Admin: 01/16/18 20:36 Dose: 81 mg Docusate Sodium (Colace) 100 mg PO BID [facility] Last Admin: 01/17/18 08:47 Dose: Not Given Ferrous Sulfate (Feosol) 325 mg PO HS [facility] Last Admin: 01/16/18 20:36 Dose: 325 mg Guaifenesin/Dextromethorphan (Robitussin Dm) 15 ml PO Q4H PRN PRN Reason: Cough Levofloxacin 500 mg/ Device 100 mls @ 100 mls/hr IVPB Q24HR@1300 [facility] Last Admin: 01/17/18 13:06 Dose: 100 mls Cefepime HCl 1 gm/ Sodium (Chloride) 100 mls @ 200 mls/hr IVPB Q12HR [facility] Last Admin: 01/17/18 08:46 Dose: 100 mls Levothyroxine Sodium (Synthroid) 75 mcg PO 0600 [facility] Last Admin: 01/17/18 06:07 Dose: 75 mcg Pantoprazole Sodium (Protonix) 40 mg PO 2100 [facility] Last Admin: 01/16/18 20:36 Dose: 40 mg Senna (Senokot) 2 tab PO HSPRN PRN PRN Reason: Constipation Simvastatin (Zocor) 10 mg PO HS [facility] Last Admin: 01/16/18 20:36 Dose: 10 mg Sodium Chloride (Flush - Normal Saline) 10 ml IVF Q12HR [facility] Last Admin: 01/17/18 08:47 Dose: 10 ml Sodium Chloride (Flush - Normal Saline) 10 ml IVF PRN PRN PRN Reason: Saline Flush Verapamil HCl (Calan Sr) 120 mg PO QAM [facility] Last Admin: 01/17/18 08:47 Dose: 120 mg Verapamil HCl (Calan Sr) 240 mg PO HS [facility] Last Admin: 01/16/18 20:36 Dose: 240 mg
--- NOTE | 2018-01-17 16:28 | CT ---
CT ABDOMEN AND PELVIS WITH CONTRAST STONE PROTOCOL: Date: 01/17/18 HISTORY: Urinary tract infection. Abdominal pain. COMPARISON: None. FINDINGS: Moderate size layering left pleural effusion. No pericardial effusion. There is abnormal edema surrounding the rectum with thickening of the mesorectal fascia. Bilateral en larged external iliac lymph nodes are present. Small diverticula are present, likely an injection foc us of gas in the left anterior pelvic superficial fat. Small, fat-containing umbilical hernia. No dilated loops of large or small bowel. Asymmetric left worse than right perinephric stranding. Numerous phleboliths in the pelvis. No hydrou reteronephrosis. Too small to characterize hypodensities are present in both kidneys. Small layering right pleural effusion. There are a few bilateral periaortic lymph nodes which are mildly prominent. Moderate to severe levoscoliosis. There is a very heterogeneous appearance of the marrow of the lower lumbar spine which may be from aggressive demineralization. Moderate degenerative disease of both hi ps. IMPRESSION: 1. Asymmetric, left worse than right, perinephric stranding concerning for pyelonephritis. 2. Abnormally large bilateral external iliac lymph nodes. These may be reactive in nature, although underlying metastatic disease cannot be totally excluded. Follow-up recommended. 3. Moderate to large left and small right layering pleural effusion. 4. Atrophy of the left psoas muscle with moderate to severe levoscoliosis may be neurogenic in natur e. 5. Abnormal circumferential edema within the mesorectal fat of the rectum. Recommend clinical correl ation for proctitis. If there is no lower abdominal pain or a history of rectal cancer, colonoscopic evaluation is recommended. POS: [facility]
[2018-01-17] MEDS: Ferrous Sulfate 325 MG TAB PO SCH (21:16)
[2018-01-17] MEDS: Simvastatin 5 MG TAB PO SCH (21:16)
[2018-01-18] MEDS: Levothyroxine Sodium 75 MCG TAB PO SCH (05:14)
[2018-01-18] MEDS: Acetaminophen 325 MG TAB PO PRN ×2 (05:14→16:19)
[2018-01-18] MEDS: Albuterol Sulfate 1.25 MG/3 ML NEB NEB SCH ×2 (06:33→14:37)
--- NOTE | 2018-01-18 07:46 | PRG ---
DATE OF SERVICE: 01/18/2018 The patient is doing reasonably well. She has no acute complaints. She is not having any dysuria, h ematuria or hemoptysis. PHYSICAL EXAMINATION: VITAL SIGNS: Temperature is 99.1 with T-max of 99.4, pulse 89, respirations 15, O2 sat 95% on room a ir, blood pressure 122/59. HEENT: Pupils react. Sclerae icteric. Oropharynx clear. NECK: No JVD, no bruits. LUNGS: She has few inspiratory crackles left upper lobe. CARDIOVASCULAR: S1, S2 regular. ABDOMEN: Soft, nontender. EXTREMITIES: No edema. LABORATORY DATA: Labs were not done today. ASSESSMENT: 1. Pseudomonal pneumonia. 2. Question of concurrent pyelonephritis. 3. Small pleural effusion - not large as was reported by the radiologist. RECOMMENDATION: I would recommend continuing antibiotics. Dr. Murphy needs to tell us whether or not we can switch to oral and how long we need to treat. I am not sure if we are looking at concurrent pyelonephritis or not. Of note, the patient is not really symptomatic from a urinary standpoint.
[2018-01-18] MEDS: Verapamil SR 120 MG TAB PO SCH (09:11)
[2018-01-18] MEDS: Anastrozole 1 MG TAB PO SCH (09:11)
[2018-01-18] MEDS: Docusate 100 MG CAP PO SCH (09:12)
[2018-01-18] MEDS: Cefepime 1 GM in Sodium Chloride 0.9% 100 ML IVPB SCH (09:14)
--- NOTE | 2018-01-18 12:10 | PDOC.PN ---
- Subjective Encounter Start Date: 01/18/18 Encounter Start Time: 10:45 Subjective: feels good, no sob or abd pain -: is having soft bm's daily, no gross blood in stool -: has occasional blood on wipes - Objective Resuscitation Status: Resuscitation Status FULL:Full Resuscitation MAR Reviewed: Yes Vital Signs & Weight: Vital Signs (12 hours) Temp Pulse Resp BP Pulse Ox 01/18/18 08:54 85 16 135/67 94 L 01/18/18 06:33 89 15 95 01/18/18 03:24 99.1 F 94 19 122/59 L 92 L Weight Weight 179 lb I&O: 01/17/18 01/18/18 01/19/18 06:59 06:59 06:59 Intake Total 1854.8 1470 Output Total 450 1550 Balance 1404.8 -80 Result Diagrams: 01/16/18 16:16 01/15/18 04:13 Phys Exam - Physical Examination HEENT: PERRLA, moist MMs Neck: no JVD, supple Respiratory: no wheezing, no rales Cardiovascular: RRR, no significant murmur Gastrointestinal: soft, non-tender, no distention, positive bowel sounds Musculoskeletal: no edema, pulses present Neurological: non-focal, moves all 4 limbs Psychiatric: normal affect, A&O x 3 Dx/Plan (1) Sepsis Code(s): A41.9 - SEPSIS, UNSPECIFIED ORGANISM Status: Acute Comment: sec to pseudomonas (2) Bacteremia Code(s): R78.81 - BACTEREMIA Status: Acute Comment: pseudomonas 1/2 sets (3) PNA (pneumonia) Code(s): J18.9 - PNEUMONIA, UNSPECIFIED ORGANISM Status: Acute Qualifiers: Pneumonia type: due to unspecified organism Laterality: left Lung location: upper lobe of lung Qualified Code(s): J18.1 - Lobar pneumonia, unspecified organism (4) CLL (chronic lymphocytic leukemia) Code(s): C91.90 - LYMPHOID LEUKEMIA, UNSPECIFIED NOT HAVING ACHIEVED REMISSION Status: Chronic (5) H/O malignant neoplasm of breast Code(s): Z85.3 - PERSONAL HISTORY OF MALIGNANT NEOPLASM OF BREAST Status: Chronic Comment: on chemotherapy (6) HTN (hypertension) Code(s): I10 - ESSENTIAL (PRIMARY) HYPERTENSION Status: Chronic Qualifiers: Hypertension type: essential hypertension Qualified Code(s): I10 - Essential (primary) hypertension (7) Physical deconditioning Code(s): R53.81 - OTHER MALAISE Status: Acute (8) Dyslipidemia Code(s): E78.5 - HYPERLIPIDEMIA, UNSPECIFIED Status: Chronic - Plan is on cefepime and levaquin, may switch to oral antibiotics per ad -: CT abd results reviewed, d/w -: to f/u with onc for the ext iliac lymph nodes in abd -: pseudomonas is pansensitive from blood, urine cs <5000 cfu -: dc plan per ID and GI advice * . Review of Systems - Medications/Allergies Allergies/Adverse Reactions: Allergies Allergy/AdvReac Type Severity Reaction Status Date / Time No Known Allergies Allergy Verified 01/08/14 17:18 Medications: Current Medications Acetaminophen (Tylenol) 650 mg PO Q4H PRN PRN Reason: Headache/Fever or Pain Last Admin: 01/18/18 05:14 Dose: 650 mg Albuterol Sulfate (Albuterol Sulfate) 1.25 mg NEB [id number] [facility] Last Admin: 01/18/18 06:33 Dose: 1.25 mg Anastrozole (Arimidex) 1 mg PO DAILY [facility] Last Admin: 01/18/18 09:11 Dose: 1 mg Aspirin (Aspirin Chewable) 81 mg PO HS [facility] Last Admin: 01/17/18 21:15 Dose: 81 mg Docusate Sodium (Colace) 100 mg PO BID [facility] Last Admin: 01/18/18 09:12 Dose: Not Given Ferrous Sulfate (Feosol) 325 mg PO HS [facility] Last Admin: 01/17/18 21:16 Dose: 325 mg Guaifenesin/Dextromethorphan (Robitussin Dm) 15 ml PO Q4H PRN PRN Reason: Cough Levofloxacin 500 mg/ Device 100 mls @ 100 mls/hr IVPB Q24HR@1300 [facility] Last Admin: 01/17/18 13:06 Dose: 100 mls Cefepime HCl 1 gm/ Sodium (Chloride) 100 mls @ 200 mls/hr IVPB Q12HR [facility] Last Admin: 01/18/18 09:14 Dose: 100 mls Levothyroxine Sodium (Synthroid) 75 mcg PO 0600 [facility] Last Admin: 01/18/18 05:14 Dose: 75 mcg Pantoprazole Sodium (Protonix) 40 mg PO 2100 [facility] Last Admin: 01/17/18 21:16 Dose: 40 mg Senna (Senokot) 2 tab PO HSPRN PRN PRN Reason: Constipation Simvastatin (Zocor) 10 mg PO HS [facility] Last Admin: 01/17/18 21:16 Dose: 10 mg Sodium Chloride (Flush - Normal Saline) 10 ml IVF Q12HR [facility] Last Admin: 01/18/18 09:12 Dose: 10 ml Sodium Chloride (Flush - Normal Saline) 10 ml IVF PRN PRN PRN Reason: Saline Flush Verapamil HCl (Calan Sr) 120 mg PO QAM [facility] Last Admin: 01/18/18 09:11 Dose: 120 mg Verapamil HCl (Calan Sr) 240 mg PO HS [facility] Last Admin: 01/17/18 21:17 Dose: 240 mg
[2018-01-18 12:32] LABS: #Basophils 0.1 thou/uL (0.0-0.2); #Eosinphils 0.1 thou/uL (0.0-0.7); #Lymphocytes 5.1 thou/uL (1.20-3.40); #Monocytes 0.6 thou/uL (0.11-0.59); #Neutrophils 6.6 thou/uL (1.40-6.50); %Eosinophils 1.1 % (0.0-10.0); %Lymphocytes 40.4 % (21.0-51.0); %Monocytes 4.9 % (0.0-10.0); %Neutrophils 52.6 % (42.0-75.0); Hemoglobin 12.5 g/dL (12.0-16.0); Mean Corpuscular HGB CONC 33.6 g/dL (32.0-36.0); Mean Corpuscular Hemoglobin 33.9 pg (27.0-31.0); Mean Platelet Volume 6.6 fL (7.4-10.4); Platelet Count 171 thou/uL (130-400); RBC Distribution Width 11.9 % (11.5-14.5); White Blood Cell (WBC) Count 12.6 thou/uL (4.8-10.8)
[2018-01-18 12:55] LABS: Anion Gap 11 mmol/L (10-20); BUN (Urea Nitrogen) 8 mg/dL (9.8-20.1); Calc. Creatinine Clearance 99 mL/min (70-130); Calcium 9.2 mg/dL (7.8-10.44); Carbon Dioxide 25 mmol/L (23-31); Chloride 103 mmol/L (98-107); Estimated GFR-MDRD 89; Glucose 108 mg/dL (83-110); Potassium 3.2 mmol/L (3.5-5.1); Sodium 136 mmol/L (136-145)
--- NOTE | 2018-01-18 13:38 | PRG ---
DATE OF SERVICE: 01/18/2018 SUBJECTIVE: Ms. Mata is feeling better. She is being readied for discharge I believe. No he adaches, no visual symptoms, no sore throat, odynophagia, dysphagia, no back pain, no dysuria. PHYSICAL EXAMINATION: VITAL SIGNS: T-max 100.7 on 01/16/2018, she has been afebrile since. LUNGS: Lungs clear. HEART: S1, S2, regular rate. ABDOMEN: Soft, not distended. LABORATORY DATA: White cell count down to 12.6, hemoglobin 12.5, platelets 171, normal differential. Creatinine 0.65 and microbiology with Pseudomonas aeruginosa. Another gram negative denys in the uri ne culture, but less than 5000 colonies. Today, I requested that the lab identify this organism. CT stone protocol that was completed yesterday showed perinephric stranding concerning for pyelonephr itis. She has lymph nodes in the external iliac area, probably related to her CLL. She has some dilia ma in the perirectal area, probably from volume overload associated with the treatment for sepsis. ASSESSMENT AND DISCUSSION: Breast cancer, chronic lymphocytic leukemia with evidence of abnormal lym ph nodes in the external iliac area, probably related to this lymphoproliferative disorder and now Ps eudomonas aeruginosa bacteremia, most likely secondary to urinary tract infection with pyelonephritis . Advise transition to oral ciprofloxacin for discharge planning for 2 weeks total.
--- NOTE | 2018-01-18 15:55 | PRG ---
DATE OF SERVICE: 01/18/2018 SUBJECTIVE: Ms. Mata had a couple of bloody stools when she was first admitted and placed on e noxaparin. She had a brown formed stool this morning. She had leakage of red blood from around the rectum this afternoon. She had a CT scan of the abdomen and pelvis performed yesterday for evaluatio n of Pseudomonas bacteremia. This did show inflammatory changes around the left kidney. She had enl arged lymph nodes, thought to be related to her CLL. She had some circumferential edema around the f at of the rectum. She has had no rectal pain. No diarrhea in the last couple of days. No constipat ion. She did have colonoscopy by Dr. Dawson in 07/2015, which was normal except for sigmoid diverticul osis and that included retroflexed views in the rectum. PHYSICAL EXAMINATION: VITAL SIGNS: Temperature 98.4, pulse 91, blood pressure 163/74. GENERAL: She is in no acute distress. She is awake and alert. LUNGS: Clear to auscultation bilaterally. HEART: Regular rate and rhythm without murmur. ABDOMEN: Soft, nontender, nondistended. Bowel sounds are present. EXTREMITIES: No lower extremity edema. RECTAL: Reveals no stool in the rectal vault. There is a scant amount of red blood on her brief. T here is no blood in the rectal vault at this time. There is no stool in the rectal vault. There is no palpable mass in the rectum. IMPRESSION: Hematochezia a couple of days ago when she was placed on enoxaparin and then this aftern oon some anal outlet type bleeding. The bleeding is most consistent with hemorrhoidal bleeding; dc mevli, incidentally, she is noted to have some edema around the fat around the rectum. She could have some ischemia of the rectum, but there is certainly no evidence of constipation or infectious process with no diarrhea. She had a negative colonoscopy in 07/2015 including retroflexed views in the rect um. RECOMMENDATIONS: 1. Started fiber supplement daily. 2. If she starts developing more significant rectal symptoms, then followup endoscopy can be perform ed. For now, we will monitor this clinically. 3. Follow up in GI clinic with Dr. Dawson in 2-4 weeks. If she is not discharged and is still here to bunch, then Dr. Jeffers will follow tomorrow.
[2018-01-18 16:18] VITALS: BP 137/64; TEMP 98.8
--- NOTE | 2018-01-19 23:13 | DIS ---
DATE OF ADMISSION: 01/14/2018 DATE OF DISCHARGE: 01/18/2018 DISCHARGE DISPOSITION: To home. PRIMARY DISCHARGE DIAGNOSES: Pseudomonas bacteremia 1/2 sets, sepsis, left upper lobe pneumonia. SECONDARY DISCHARGE DIAGNOSES: Chronic lymphatic leukemia, history of breast cancer, hypertension, deconditioning, dyslipidemia. PROCEDURES DONE DURING HOSPITALIZATION: CT abdomen and pelvis with contrast done showed bilateral perinephric stranding, left worse than right, abnormally large bilateral external iliac lymph nodes, moderate large left and small right layering pleural effusion, there is abnormal circumferential edema within the mesorectal fat of the rectum with possible proctitis. CT angio chest done showed no evidence of PE. There was left upper lobe infiltrate suspicious for pneumonia. Thoracic spine MRI with contrast done showed no evidence of diskitis or osteomyelitis. No evidence of epidural abscess. There is multilevel spondylosis seen. Blood cultures 1/2 grew Pseudomonas sensitive to quinolones. Stool for C. diff was negative. Respiratory virus panel, PCR was negative. Had a white count of 19 on the day of admission. Discharge BUN and creatinine is 8 and 0.6. TSH 1.7 one set of cardiac enzymes are negative. Urine for Legionella pneumophila antigen is negative. Urine for Strep pneumo antigen is negative. DISCHARGE MEDICATIONS: Ciprofloxacin 500 mg p.o. twice daily for another [address] Murphy' advice, Colace 100 mg p.o. twice daily, verapamil 120 mg p.o. q.a.m. and 240 mg p.o. at bedtime, triamterene with hydrochlorothiazide half tablet daily, omeprazole 40 mg at bedtime, Mevacor 20 mg p.o. at bedtime, Synthroid 75 mcg p.o. daily, aspirin 81 mg p.o. at bedtime, anastrozole 1 mg p.o. daily. ALLERGIES: No known drug allergies. INPATIENT CONSULTS: Dr. Murphy for Infectious Disease, Dr. Murray for Pulmonology, Dr. Villalpando for Cardiology, and Dr. Jake Kaur for Gastroenterology. BRIEF COURSE DURING HOSPITALIZATION: The patient initially was brought to emergency room with complaints of chest pain radiating to the back, this was in the retrosternal area. She was also having dry heaving and shaking. The patient was essentially admitted to telemetry for sepsis with her being immunosuppressed and to rule out sepsis. The patient had CT angio chest done, which showed left upper lobe pneumonia. Her blood cultures grew 1/2 Pseudomonas. She has had a subsequent CAT scan of the abdomen done which did not reveal any acute pathology except for possible proctitis. The patient has had 1 or 2 episodes of blood streaking on her wipes, but no profuse hemorrhage seen. She was evaluated by Dr. Kaur. She needs follow up with her physical therapy coordinator in 4 weeks when she finishes her full course of antibiotics. Her Pseudomonas was pansensitive. Prior to discharge, she is ambulating and eating well. The patient has enlarged external iliac nodes on the CAT scan and needs to have further workup towards the same via her oncologist. She has known history of breast cancer and CLL. Please see a [id number] documentation on [facility] for the day of discharge. RYLAND
== END 2018-01-18 19:17 | disposition home or self-care (01) | DRG 871 ==
LOC: ERS 07:21 → 2SE 11:09 → 2NO 01-16 20:55
PROVIDERS: ADMIT Internal Medicine; ATTEND Internal Medicine
PROC: 3E0234Z Introduction of Serum, Toxoid and Vaccine into Muscle, Percutaneous Approach (ICD-10-PCS; principal; 2018-01-14)
DX: A41.52 Sepsis due to Pseudomonas (principal); J18.1 Lobar pneumonia, unspecified organism; C91.11 Chronic lymphocytic leukemia of B-cell type in remission; I47.1 Supraventricular tachycardia; J90 Pleural effusion, not elsewhere classified; N39.0 Urinary tract infection, site not specified; Z85.3 Personal history of malignant neoplasm of breast; Z92.21 Personal history of antineoplastic chemotherapy; Z92.3 Personal history of irradiation; I10 Essential (primary) hypertension; E78.5 Hyperlipidemia, unspecified; Z79.82 Long term (current) use of aspirin; K22.2 Esophageal obstruction; K62.89 Other specified diseases of anus and rectum; R13.10 Dysphagia, unspecified; E78.00 Pure hypercholesterolemia, unspecified; B96.20 Unspecified Escherichia coli [E. coli] as the cause of diseases classified elsewhere; Z23 Encounter for immunization
CPT/HCPCS: 36415; 71045; 71275; 72157; 74176; 80048; 80053; 81003; 81015; 82550; 82553; 83605; 83690; 83880; 84443; 84484; 85014; 85018; 85025; 85379; 87040; 87077; 87086; 87149; 87186; 87324; 87449; 87633; 87899; 90471; 90662; 93005; 94640; 96361; 96365; 96375; A4216; G0008; J0692; J1650; J1885; J1956; J2405; J2543; J7050

== ENCOUNTER 2018-02-28 12:52 | Outpatient (CLI) | payer MEDICARE, BC ==
--- NOTE | 2018-02-28 14:23 | RAD ---
CHEST TWO VIEWS: HISTORY: Dyspnea. FINDINGS: The cardiac silhouette and pulmonary vasculature are unremarkable. The lungs are hyperinflated. Eac h hemidiaphragm is somewhat lobulated. This correlates with CT findings from 01/17/2018. The lungs are hyperinflated. The mediastinum is midline with aortic calcification. No lobar consolidation, pl eural fluid, or pneumothorax. IMPRESSION: 1. Pulmonary hyperinflation. 2. Atherosclerosis. POS: RAPHAEL
== END 2018-02-28 12:53 | disposition home or self-care (01) ==
LOC: RAD 12:52
PROVIDERS: ATTEND Internal Medicine Critical Care Medicine
DX: R06.00 Dyspnea, unspecified (principal); R91.8 Other nonspecific abnormal finding of lung field; I70.0 Atherosclerosis of aorta
CPT/HCPCS: 71046

== ENCOUNTER 2018-09-12 14:19 | Outpatient (CLI) | payer MEDICARE, BC ==
--- NOTE | 2018-09-12 16:40 | RAD ---
PA AND LATERAL VIEWS CHEST: 09/12/18 HISTORY: Bronchitis, cough. FINDINGS: Comparison made with exam of 02/28/2018. The heart size is normal. The aorta is tortuous. The lungs are well expanded without lobar consolidat ion, pneumothoraces, or pleural effusions. There is mild degenerative changes of the spine. IMPRESSION: No radiographic evidence of acute cardiopulmonary process. POS: OFF
== END 2018-09-12 14:20 | disposition home or self-care (01) ==
LOC: BICRAD 14:19
PROVIDERS: ATTEND Obstetrics & Gynecology
DX: J40 Bronchitis, not specified as acute or chronic (principal)
CPT/HCPCS: 71046

== ENCOUNTER 2018-12-06 10:18 | Outpatient (CLI) | payer MEDICARE, BC ==
--- NOTE | 2018-12-06 10:49 | MMO ---
Bilateral MAMMO Bilat Diag [facility]. CLINICAL HISTORY: Patient is 73 years old and is seen for diagnostic exam. The patient has no family history of breast cancer. The patient has a history of malignant (generic) in the right breast at age 68. The patient has a history of right Lumpectomy at age 68 - malignant. VIEWS: The views performed were: bilateral craniocaudal with tomosynthesis; bilateral mediolateral oblique with tomosynthesis; and bilateral mediolateral with tomosynthesis. FILMS COMPARED: The present examination has been compared to prior imaging studies performed at [facility] on 12/05/2017, and [place] [facility]16/2014, 11/18/2015 and 11/21/2016. MAMMOGRAM FINDINGS: There are scattered fibroglandular densities. There are stable benign appearing calcifications seen in both breasts. There are also vascular calcifications. There are no suspicious masses, suspicious calcifications, or new areas of architectural distortion. IMPRESSION: THERE IS NO MAMMOGRAPHIC EVIDENCE OF MALIGNANCY. A ROUTINE FOLLOW-UP MAMMOGRAM IN 1 YEAR IS RECOMMENDED. THE RESULTS OF THIS EXAM WERE SENT TO THE PATIENT. ACR BI-RADS Category 2 - Benign finding MAMMOGRAPHY NOTE: 1. A negative mammogram report should not delay a biopsy if a dominant of clinically suspicious mass is present. 2. Approximately 10% to 15% of breast cancers are not detected by mammography. 3. Adenosis and dense breasts may obscure an underlying neoplasm. Reported by: LORETO AYON MD Electonically Signed: [id number]
== END 2018-12-06 10:19 | disposition home or self-care (01) ==
LOC: BICMAMMO 10:18
PROVIDERS: ATTEND Specialist
DX: Z08 Encounter for follow-up examination after completed treatment for malignant neoplasm (principal); Z85.3 Personal history of malignant neoplasm of breast
CPT/HCPCS: 77066; G0279

== ENCOUNTER 2019-12-08 13:39 | Outpatient (CLI) | payer MEDICARE, BC ==
--- NOTE | 2019-12-08 14:15 | MMO ---
Bilateral MAMMO Bilat Screen [facility]. CLINICAL HISTORY: Patient is 74 years old and is seen for screening. The patient has no family history of breast cancer. The patient has a history of malignant (generic) in the right breast at age 68 and leukemia. The patient has a history of right Lumpectomy at age 68 - malignant. VIEWS: The views performed were: bilateral craniocaudal with tomosynthesis and bilateral mediolateral oblique with tomosynthesis. FILMS COMPARED: The present examination has been compared to prior imaging studies performed at [facility] on 12/05/2017 and 12/06/2018, and at [facility] on 11/18/2015 and 11/21/2016. This study has been interpreted with the assistance of computer-aided detection. MAMMOGRAM FINDINGS: There are scattered fibroglandular densities. Finding 1: There are stable benign appearing calcifications seen in both breasts. There are also vascular calcifications. Finding 2: There are stable post operative changes seen in the right breast. There are no suspicious masses, suspicious calcifications, or new areas of architectural distortion. IMPRESSION: THERE IS NO MAMMOGRAPHIC EVIDENCE OF MALIGNANCY. A ROUTINE FOLLOW-UP MAMMOGRAM IN 1 YEAR IS RECOMMENDED. THE RESULTS OF THIS EXAM WERE SENT TO THE PATIENT. ACR BI-RADS Category 2 - Benign finding MAMMOGRAPHY NOTE: 1. A negative mammogram report should not delay a biopsy if a dominant of clinically suspicious mass is present. 2. Approximately 10% to 15% of breast cancers are not detected by mammography. 3. Adenosis and dense breasts may obscure an underlying neoplasm. Reported by: YOANDY SHIN MD Electonically Signed: [id number]
== END 2019-12-08 13:40 | disposition home or self-care (01) ==
LOC: BICMAMMO 13:39
PROVIDERS: ATTEND Family Medicine
DX: Z12.31 Encounter for screening mammogram for malignant neoplasm of breast (principal); Z85.3 Personal history of malignant neoplasm of breast; Z85.6 Personal history of leukemia; Z98.890 Other specified postprocedural states
CPT/HCPCS: 77063; 77067

== ENCOUNTER 2020-12-09 10:35 | Outpatient (CLI) | payer MEDICARE, BC | END 2020-12-09 10:36 | disposition home or self-care (01) | LOC: BICMAMMO 10:35 | PROVIDERS: ATTEND Family Medicine | DX: Z12.31 Encounter for screening mammogram for malignant neoplasm of breast (principal); Z85.3 Personal history of malignant neoplasm of breast; Z85.6 Personal history of leukemia; Z98.890 Other specified postprocedural states | CPT/HCPCS: 77063; 77067 ==

== ENCOUNTER 2021-12-27 11:50 | Outpatient (CLI) | payer MEDICARE, BC | END 2021-12-27 11:51 | disposition home or self-care (01) | LOC: BICMAMMO 11:50 | PROVIDERS: ATTEND Family Medicine | DX: Z12.31 Encounter for screening mammogram for malignant neoplasm of breast (principal); Z98.890 Other specified postprocedural states; Z85.3 Personal history of malignant neoplasm of breast; Z85.6 Personal history of leukemia; Z80.3 Family history of malignant neoplasm of breast | CPT/HCPCS: 77063; 77067 ==

== ENCOUNTER 2023-03-06 12:20 | Outpatient (CLI) | payer MEDICARE, BC | END 2023-03-06 12:21 | disposition home or self-care (01) | LOC: BICMAMMO 12:20 | PROVIDERS: ATTEND Internal Medicine Hematology & Oncology | DX: Z12.31 Encounter for screening mammogram for malignant neoplasm of breast (principal); Z80.3 Family history of malignant neoplasm of breast; Z85.3 Personal history of malignant neoplasm of breast; Z85.6 Personal history of leukemia; Z98.890 Other specified postprocedural states | CPT/HCPCS: 77063; 77067 ==

== ENCOUNTER 2024-04-01 12:57 | Outpatient (CLI) | payer MEDICARE | END 2024-04-01 12:58 | disposition home or self-care (01) | LOC: BICMAMMO 12:57 | PROVIDERS: ATTEND Family Medicine | DX: Z12.31 Encounter for screening mammogram for malignant neoplasm of breast (principal); Z80.3 Family history of malignant neoplasm of breast; Z85.3 Personal history of malignant neoplasm of breast; Z98.890 Other specified postprocedural states | CPT/HCPCS: 77063; 77067 ==

== ENCOUNTER 2024-04-24 12:44 | Outpatient (CLI) | payer MEDICARE | END 2024-04-24 12:45 | disposition home or self-care (01) | LOC: BICMAMMO 12:44 | PROVIDERS: ATTEND Family Medicine | DX: Z78.0 Asymptomatic menopausal state (principal) | CPT/HCPCS: 77080 ==